=== PATIENT | male | born 1945 | race Two or more races ===

== ENCOUNTER 2021-07-31 18:00 | Emergency (ER) | payer MEDICARE, MEDICAID ==
[~2021-07-31] VITALS: Ht 172.7 cm; Wt 65.8 kg
[2021-07-31 18:00] VITALS: BP 115/79
== END 2021-07-31 20:06 | disposition left against medical advice (07) ==
LOC: EDBD 18:00 → ER 18:00
DX: F10.129 Alcohol abuse with intoxication, unspecified (principal); Z53.21 Procedure and treatment not carried out due to patient leaving prior to being seen by health care provider; Y90.9 Presence of alcohol in blood, level not specified